=== PATIENT | male | born 1960 | race Caucasian/White ===

== ENCOUNTER → 2017-03-02 | Outpatient (CLI) | payer MEDICARE | END | disposition home or self-care (01) | LOC: PMGWOUND 12:38 | PROVIDERS: ATTEND Emergency Medicine Undersea and Hyperbaric Medicine | DX: I87.311 Chronic venous hypertension (idiopathic) with ulcer of right lower extremity (principal); I10 Essential (primary) hypertension; F32.9 Major depressive disorder, single episode, unspecified; E78.5 Hyperlipidemia, unspecified; K21.9 Gastro-esophageal reflux disease without esophagitis; Z89.421 Acquired absence of other right toe(s); F17.210 Nicotine dependence, cigarettes, uncomplicated | CPT/HCPCS: 99214 ==

== ENCOUNTER → 2017-03-16 | Outpatient (CLI) | payer MEDICARE | END | disposition home or self-care (01) | LOC: PMGWOUND 09:14 | PROVIDERS: ATTEND Emergency Medicine Undersea and Hyperbaric Medicine | DX: L97.221 Non-pressure chronic ulcer of left calf limited to breakdown of skin (principal); I10 Essential (primary) hypertension; K21.9 Gastro-esophageal reflux disease without esophagitis; E78.5 Hyperlipidemia, unspecified; F32.9 Major depressive disorder, single episode, unspecified; F17.210 Nicotine dependence, cigarettes, uncomplicated; Z89.421 Acquired absence of other right toe(s) | CPT/HCPCS: 99214 ==

== ENCOUNTER → 2017-03-30 | Outpatient (CLI) | payer MEDICARE ==
--- NOTE | 2017-03-30 14:29 | KCIC ---
MR of the right knee Indication: Right knee pain. Symptoms for 2 months. Pain and swelling. Technique: The standard multiplanar sequences are obtained. Findings: Mild motion degradation Medial meniscus:Intact. Lateral meniscus: Intact. Anterior cruciate ligament: Intact Posterior cruciate ligament: Intact Medial collateral ligament: Intact. Iliotibial band: Intact. Posterolateral structures: Mild signal at the femoral attachment of the fibular collateral ligament is likely degenerative. No acute tear or laxity. Popliteus tendon and biceps femoris tendon are intact. Extensor mechanism: Mild distal quadriceps tendinosis. Fluid: Moderate joint effusion. Articular cartilage -patellofemoral joint: Severe chondromalacia, particularly at the lateral aspect of the joint. -medial compartment: Moderate medial femoral condyle chondromalacia. -lateral compartment: Moderate to severe chondromalacia. Bones: Acute bone marrow edema at the upper pole of the patella. No evidence of an acute fracture. Soft tissue: Generalized soft tissue edema and intramuscular edema. There is a complex fluid collection located posterior to the popliteus and anterior to the gastrocnemius muscles and dissecting into the upper calf. Impression: 1. Diffuse soft tissue edema or inflammation. There is a complex fluid collection at the posterior knee and upper calf. This could represent a hematoma or an inflammatory collection. Consider abscess if the patient is clinically infected. 2. Primary osteoarthritis. 3. Joint effusion of uncertain sterility. 4. Distal quadriceps tendinosis. Marrow edema at the upper pole of patella is presumably reactive. Electronically signed by: Héctor Qureshi MD (03/30/2017 2:26 PM) [facility]
== END | disposition home or self-care (01) ==
LOC: KCIC MRI 12:24
DX: M17.11 Unilateral primary osteoarthritis, right knee (principal); M94.261 Chondromalacia, right knee; M25.461 Effusion, right knee; R60.0 Localized edema
CPT/HCPCS: 73721

== ENCOUNTER → 2017-11-01 | Outpatient (CLI) | payer MEDICARE | END | disposition home or self-care (01) | LOC: RAD 09:19 | DX: S83.241A Other tear of medial meniscus, current injury, right knee, initial encounter (principal); M17.11 Unilateral primary osteoarthritis, right knee; M94.261 Chondromalacia, right knee; X58.XXXA Exposure to other specified factors, initial encounter; Y93.89 Activity, other specified; Y92.89 Other specified places as the place of occurrence of the external cause; Y99.8 Other external cause status | CPT/HCPCS: 73721; 77073 ==

== ENCOUNTER → 2017-11-07 | Outpatient (CLI) | payer MEDICARE ==
[2017-11-07 18:52] LABS: BF CLARITY TURBID; BF COLOR YELLOW; BF MON % 18 %; BF PMN % 82 %; BF RBC COUNT 6250 /cmm; BF SOURCE SYNOVIAL; BF WBC COUNT 42875 /cmm
[2017-11-09 06:20] LABS: POLARIZED CRYSTALS Negative (None seen)
== END | disposition home or self-care (01) ==
LOC: SPEC 16:18
DX: M17.11 Unilateral primary osteoarthritis, right knee (principal); I10 Essential (primary) hypertension; E78.5 Hyperlipidemia, unspecified
CPT/HCPCS: 87205; 89050

== ENCOUNTER → 2017-11-14 | Day surgery (SDC) | payer MEDICARE ==
[~2017-11-14] MED LIST: BUPIVACAINE 0.5% 50 ML VIAL.; DEXAMETHASONE SOD PHOS 20 MG/5 ML VIAL.; EPINEPHrine VIAL 30 MG/30 ML VIAL; IV RINGERS,LACTATED 1000ML 1,000 ML IV; LIDOCAINE 1% PF 2 ML VIAL. ID; LIDOCAINE 1% PF 30 ML VIAL.; LIDOCAINE 2% PF Vial for OR 5 ML VIAL.; MORPHINE SULFATE 4 MG/ML DISP.SYRIN. IV; ONDANSETRON PF 4 MG/2 ML VIAL.; ONDANSETRON PF 4 MG/2 ML VIAL. IV; PROCHLORPERAZINE 10 MG/2 ML VIAL.; PROCHLORPERAZINE 10 MG/2 ML VIAL. IV; PROPOFOL 20 ML IV; SEVOFLURANE 31 TO 60 MINUTES. IH; ePHEDrine PF IN SALINE 50 MG/5 ML DISP.SYRIN IV; fentaNYL PF VIAL 100 MCG/2 ML VIAL; fentaNYL PF VIAL 100 MCG/2 ML VIAL IV
== END | disposition home or self-care (01) ==
LOC: SURG 10:22
DX: M00.861 Arthritis due to other bacteria, right knee (principal); Z88.5 Allergy status to narcotic agent; E78.00 Pure hypercholesterolemia, unspecified; I10 Essential (primary) hypertension; K21.9 Gastro-esophageal reflux disease without esophagitis; E11.9 Type 2 diabetes mellitus without complications; F32.9 Major depressive disorder, single episode, unspecified; F12.90 Cannabis use, unspecified, uncomplicated; Z72.89 Other problems related to lifestyle; F17.200 Nicotine dependence, unspecified, uncomplicated; Z79.84 Long term (current) use of oral hypoglycemic drugs; Z79.899 Other long term (current) drug therapy; Z79.2 Long term (current) use of antibiotics
CPT/HCPCS: 29871; J0171; J0780; J1100; J2001; J2405; J2704; J3010; J3490

== ENCOUNTER → 2017-11-21 | Outpatient (CLI) | payer MEDICARE ==
[2017-11-21] MEDS: ERTAPENEM 1GM IVPB FOR OMNI 50 ML IV (10:44)
== END | disposition home or self-care (01) ==
LOC: OPS 09:51
DX: A41.9 Sepsis, unspecified organism (principal); A48.8 Other specified bacterial diseases; M01.X61 Direct infection of right knee in infectious and parasitic diseases classified elsewhere; I10 Essential (primary) hypertension; E11.9 Type 2 diabetes mellitus without complications; E78.5 Hyperlipidemia, unspecified; J44.9 Chronic obstructive pulmonary disease, unspecified; E87.1 Hypo-osmolality and hyponatremia; Z89.429 Acquired absence of other toe(s), unspecified side
CPT/HCPCS: 96365; J1335

== ENCOUNTER 2019-06-20 07:15 | Outpatient (CLI) | payer MEDICARE ==
[2019-06-20] VITALS (12 sets, daily range): BP systolic 77–107; BP diastolic 55–67
[~2019-06-20] VITALS: Ht 170.2 cm; Wt 93.0 kg
[~2019-06-20 07:15] MED LIST changes: +AMOX1TAB61 PO; +ATOR10TA60 PO; -BUPIVACAINE 0.5% 50 ML VIAL.; +CELE200C PO; +CITA40TA5 PO; +CLON0.1T PO; -DEXAMETHASONE SOD PHOS 20 MG/5 ML VIAL.; -EPINEPHrine VIAL 30 MG/30 ML VIAL; +GABA300C18 PO; +HYDR-2145 PO; +HYDR-2761 PO; -IV RINGERS,LACTATED 1000ML 1,000 ML IV; -LIDOCAINE 1% PF 2 ML VIAL. ID; -LIDOCAINE 1% PF 30 ML VIAL.; -LIDOCAINE 2% PF Vial for OR 5 ML VIAL.; +METO25TA4 PO; -MORPHINE SULFATE 4 MG/ML DISP.SYRIN. IV; +OMEP40CA45 PO; -ONDANSETRON PF 4 MG/2 ML VIAL.; -ONDANSETRON PF 4 MG/2 ML VIAL. IV; -PROCHLORPERAZINE 10 MG/2 ML VIAL.; -PROCHLORPERAZINE 10 MG/2 ML VIAL. IV; -PROPOFOL 20 ML IV; +RANI150C PO; -SEVOFLURANE 31 TO 60 MINUTES. IH; +TAMS0.4C2 PO; +TIOT18CA IH; +VENTOLIN HFA18 GM INH; +ZOLP10TA4 PO; -ePHEDrine PF IN SALINE 50 MG/5 ML DISP.SYRIN IV; -fentaNYL PF VIAL 100 MCG/2 ML VIAL; -fentaNYL PF VIAL 100 MCG/2 ML VIAL IV
--- NOTE | 2019-06-20 07:32 | PDOC1 ---
History and Physical Visit Information Date of Admission: 06/20/2019 History of Present Illness History of Present Illness [place] is a pleasant 59-year-old man who has exertional dyspnea and severe aortic stenosis. He presents for preoperative cardiac catheterization today. He continues to have exertional dyspnea. No syncope or palpitations. His LV function is approximately 50%. Cardiac Risk Factors Cardiac Risk Factors: Hypertension, Smoking Past Medical History Cardiovascular: HTN Current Medications Current Medications See medication administration record Allergies Allergies Allergies Coded Allergies Type Severity Reaction Last Updated Verified morphine Allergy Mild Itching 11/21/17 Yes Social History Comments Currently continues to smoke. No alcohol, illicit drugs. Family History Comments Noncontributory ROS Review of System Negative for 10 out of 14 systems reviewed unless otherwise mentioned above in history of present illness Physical Exam General: Alert, Oriented X3, Cooperative HEENT: Atraumatic Lungs: Clear to auscultation Heart: Regular rate (5/6 systolic murmur consistent with severe aortic stenosis) CHEST: No wheezes, No rales or rhonchi Abdomen: Normal bowel sounds Extremities: No clubbing Skin: No rashes Neuro: Normal gait, Strength at 5/5 X4 ext Vitals VITALS Vital signs stable Labs Labs Currently pending Images Images Echocardiogram demonstrates severe aortic stenosis. ECG EKG: NSR VTE Prophylaxis Ordered VTE Prophylaxis Devices: No VTE Pharmacological Prophylaxi: No Assessment/Plan Assessment/Plan Risks and benefits of diagnostic angiography plus minus PCI were discussed with the patient. He has critical aortic stenosis and mild LV dysfunction. He will likely need aortic valve replacement. Plan for this in the near future. AMADA BHATTI MD Jun 20, 2019 07:32
--- NOTE | 2019-06-20 07:36 | PDOC ---
MODERATE SEDATION ASSESSMENT RISKS/ALTERNATIVES Risks/Alternatives Risks and alternatives of this type of sedation and procedure discussed with: RISK/ALTERNATIVES: Patient H & P ON CHART H & P H & P on chart and reviewed for co-morbid conditions and appropriate labs. H&P ON CHART: Yes STATUS PREG STATUS ASSESSED: N/A MEDS/ALLERGIES REVIEWED Meds/Allergies Reviewed Medications and Allergies including time and route of recently administered narcotics and sedatives. MEDS/ALLERGIES REVIEWED: Yes ASA RATING ASA RATING: II AIRWAY ASSESSMENT Airway Assessment Airway patency, oral function limitations, presence of caps, crowns, dentures, partials, and ability to extend neck assessed. AIRWAY ASSESSMENT: Yes MALLAMPATI SCORE MALLAMPATI SCORE: II PRE-SEDATION ASSESSMENT PRE-SEDATION ASSESSMENT: Yes AMADA BHATTI MD Jun 20, 2019 07:36
[2019-06-20] MEDS ORDERED: LIDOCAINE 1% Multi-Dose 20 ML VIAL. ONE (07:39)
[2019-06-20] MEDS ORDERED: HEPARIN for ARTERIAL LINE 1,500 ML ONE (07:39)
[2019-06-20] MEDS ORDERED: IODIXANOL 320 MG/ML 100 ML VIAL. ONE (07:39)
[2019-06-20 07:41] LABS: HEMOGLOBIN 15.6 g/dL (13.0-17.5); RED BLOOD COUNT 4.85 x10^6/uL (4.30-5.70); RED CELL DISTRIBUTION WIDTH 13.5 % (11.5-14.5); WHITE BLOOD COUNT 7.6 x10^3/uL (4.0-11.0)
[2019-06-20] MEDS ORDERED: GABA300C18 PO (07:42)
[2019-06-20] MEDS ORDERED: CLON0.1T PO (07:42)
[2019-06-20 07:51] LABS: CALCIUM 9.3 mg/dL (8.5-10.1); CREATININE 1.3 mg/dL (0.7-1.3); GFR 56.7; POTASSIUM 4.3 mmol/L (3.5-5.1)
[2019-06-20] MEDS ORDERED: VERAPAMIL 5 MG/2 ML VIAL. ONE (08:02)
[2019-06-20] MEDS ORDERED: NITROGLYCERIN 200 MCG/2 ML SYRINGE FOR CATH/VASC LAB. ONE (08:02)
[2019-06-20] MEDS ORDERED: HEPARIN for IV BOLUS 10,000 UNIT/10 ML VIAL. ONE (08:02)
[2019-06-20] MEDS ORDERED: fentaNYL PF VIAL 100 MCG/2 ML VIAL ONE (08:02)
[2019-06-20] MEDS ORDERED: MIDAZOLAM HCL/PF 5 MG/5 ML VIAL. ONE (08:02)
[2019-06-20 08:26] LABS: PROTHROMBIN TIME PATIENT 13.7 SEC (11.7-14.0)
[2019-06-20] MEDS ORDERED: MIDAZOLAM HCL/PF 5 MG/5 ML VIAL. IV ONE (09:00)
[2019-06-20] MEDS ORDERED: VERAPAMIL 5 MG/2 ML VIAL. IART ONE (09:00)
[2019-06-20] MEDS ORDERED: NITROGLYCERIN 200 MCG/2 ML SYRINGE FOR CATH/VASC LAB. IART ONE (09:00)
[2019-06-20] MEDS ORDERED: IODIXANOL 320 MG/ML 100 ML VIAL. IART ONE (09:00)
[2019-06-20] MEDS ORDERED: LIDOCAINE 1% Multi-Dose 20 ML VIAL. INJ ONE (09:00)
[2019-06-20] MEDS ORDERED: HEPARIN for IV BOLUS 10,000 UNIT/10 ML VIAL. IART ONE (09:00)
[2019-06-20] MEDS ORDERED: CONTRAST GIVEN. MC PRN (09:00)
[2019-06-20] MEDS ORDERED: fentaNYL PF VIAL 100 MCG/2 ML VIAL IV ONE (09:00)
[2019-06-20] MEDS ORDERED: IV NORMAL SALINE 1000ML BAG 1,000 ML IV ONE (09:30)
--- NOTE | 2019-06-20 10:14 | CARD ---
MR#: [id number] Date of Study: 06/20/2019 Ordering Physician: AMADA BHATTI, Referring Physician: AMADA BHATTI, Tech: BOBBI TATE RTR APPROVED REPORT Technologist: BOBBI TATE RTR Nurse: Latesha Mena R.N. Procedure(s) performed: MODERATE SEDATION TIME: 55 MINUTES FLUORO TIME: 5.1 MIN DOSE: 68.6 MIN CONTRAST: 72 CC VISI RHC, Coronary angiography HISTORY The patient is a 59 year-old male with a history of : tobacco history() , hypertension, dyslipidemia. INDICATION The indication(s) include : dyspnea, valvular heart disease, Severe with exertional dyspnea. Preop erative evaluation. [facility] Clinical Frailty Scale [facility] Clinical Frailty Scale: Managing Well Heart Failure Heart Failure: Yes If Yes, Newly Diagnosed: No If Yes, HF Type: Diastolic If Yes, NYHA Class: Class II PROCEDURE NARRATIVE INFORMED CONSENT: After explaining the risks and benefits of the procedure and alternatives, informed consent was obtained. The patient was brought electively to the cardiac catheterization lab. A timeout was performed confi rming the patient's name, date of , procedure, and site of procedure. All necessary personnel w ere wearing the appropriate protective equipment and radiation monitor devices. (See nursing notes for medications administered). ACCESS: The right wrist was sterilely prepped and draped in the usual fashion. The right wrist was infiltrat ed with 1 mL of 2% lidocaine for subcutaneous anesthesia. A 6 [place] Terumo glide sheath was inserte d into the right radial artery without difficulty. The right neck was prepped and draped in usual kenneth rile fashion. Under ultrasound guidance the right IJ area was infiltrated with 2% lidocaine and using an 18-gauge needle a J-tipped guidewire was advanced into the right atrium without any difficulty an d subsequently a 5 [place] sheath was placed. CORONARY ANGIOGRAPHY: Right and left coronary angiography was performed using a 6Fr TIG 4.0 catheter and JR4 catheters. All catheter exchanges and advancements were performed over a guidewire. RHC: A right heart catheterization was performed using a 5 [place] PA catheter. Pressures and saturations w ere obtained. CLOSURE: At case completion the right radial sheath was removed and a Terumo radial band was applied with 13 m l of air. COMPLICATIONS: The patient tolerated the procedure well and there were no immediate complications. FINDINGS: HEMODYNAMICS: AO: 128/78 RHC: PCWP: 22 mm Hg PA: 45/18/30 RV: 41/4/13 RA: 8 Saturations: FA: 97%, PA: 72%, RV: 73%, RA: 74% Xavi CO: 4.5 L/min LEFT VENTRICULOGRAM: Deferred due to known EF of 50% by echo with Severe and a MG of 47 mm Hg. CORONARY ANGIOGRAPHY: LM is a large caliber vessel with normal angiographic appearance. LAD is a large caliber vessel with normal angiographic appearance. D1 is a large caliber vessel with normal angiographic apeparance. LCx is a large caliber co-dominant vessel with normal angiographic appearance. OM1 is a moderate caliber vessel with normal angiographic appearance. RCA is a large caliber dominant vessel with a distal 40% stenosis. RPDA is a moderate caliber vessel with normal angiographic appearance. Conclusion 1. Mildly elevated left sided filling pressures. (PCWP 22 mm Hg) 2. Mild pulmonary HTN, left sided due to diastolic HF (mPA 30 mm Hg) 3. Normal cardiac output 4. Minimal non-obstructive coronary disease. Recommendations 1. Due to mild LV dysfunction in the setting of severe with symptoms, will refer for valve replace ment evaluation. 2. Discussed smoking cessation. 3. BP/HR well controlled. Defer quinton-inh or other afterload reduction given severe , consider after valve is addressed and wean off clonidine etc. Signed by : Amada Bhatti, Electronically Approved : 06/20/2019 10:14:21
--- NOTE | 2019-06-20 10:40 | NUR ---
Patient's blood pressure dropped (77/55), 250cc NS fluid bolus started. Patient resting comfortably in bed, will continue to monitor closely.
--- NOTE | 2019-06-20 12:11 | NUR ---
Discharge Note: [facility] Discharge instructions and discharge home medications reviewed with Patient and a copy given. All questions have been answered and understanding verbalized. The following instructions and handouts were given: radial site care,incision care,and adult moderate sedation Discontinued lines and drains: Peripheral IV intact. Patient discharged to Home or Self Care withFamily Membera Wheelchair
== END 2019-06-20 12:10 | disposition home or self-care (01) ==
LOC: CCL 07:15
PROVIDERS: ATTEND Internal Medicine Cardiovascular Disease
DX: R06.00 Dyspnea, unspecified (principal); I25.10 Atherosclerotic heart disease of native coronary artery without angina pectoris; I50.30 Unspecified diastolic (congestive) heart failure; I11.0 Hypertensive heart disease with heart failure; I35.0 Nonrheumatic aortic (valve) stenosis; F17.210 Nicotine dependence, cigarettes, uncomplicated; Z79.01 Long term (current) use of anticoagulants
CPT/HCPCS: 36415; 76937; 80048; 85027; 85610; 85730; 93456; 99152; 99153; C1769; C1773; C1892; J1644; J2250; J3010; J3490; J7030; Q9967